=== PATIENT | female | born 1985 | race African-American/Black ===

== ENCOUNTER 2016-12-14 20:42 | Emergency (ER) | payer OTHER ==
[~2016-12-14] VITALS: Ht 175.3 cm; Wt 102.7 kg
[~2016-12-14 20:42] MED LIST: CEPHALEXIN500 M1 PO; FERREX 150150 MG PO; PROAIR HFA0.09 MG/AC IH; RT ADVAIR 528 DISKUS IH
[2016-12-14 20:46] VITALS: BP 168/85
[2016-12-14] MEDS ORDERED: TAMIFLU30 MG PO (20:51)
[2016-12-14] MEDS ORDERED: TUSS PO (21:30)
[2016-12-14 22:10] VITALS: PULSE 119; TEMP 102.7
== END 2016-12-14 22:11 | disposition home or self-care (01) ==
LOC: COL.ER 20:42
DX: B34.9 Viral infection, unspecified (principal); R50.9 Fever, unspecified; R05 Cough; J45.909 Unspecified asthma, uncomplicated
CPT/HCPCS: J1885

== ENCOUNTER → 2017-05-19 | Outpatient (REF) ==
[~2017-05-19] MED LIST changes: +TAMIFLU30 MG PO; +TUSS PO
== END ==
LOC: ZMSC 09:50
DX: Z01.89 Encounter for other specified special examinations (principal)